=== PATIENT | male | born 1980 | race Caucasian/White ===

== ENCOUNTER 2021-03-20 09:46 | Outpatient (CLI) | payer OTHER, SELFPAY ==
--- NOTE | 2021-03-20 10:06 | XR_ITS ---
WS: [id number] Lumbar spine, 3 views, 03/20/2021 Clinical Data: LUMBAR DDD OSTEOARTHRITIS Comparison: None. Findings: No compression fractures or subluxation is seen. No disc space narrowing is seen of the lumbar levels . There is degenerative disc narrowing at T12-L1. The transverse processes and SI joints are normal. There is minimal osteoarthritic spurring of the lower thoracic and all the lumbar vertebral bodies. XR/XR lumbar spine 2-3V* [id number] Impression: Minimal osteoarthritis of the lumbar vertebral bodies.
== END 2021-03-20 09:47 | disposition home or self-care (01) ==
LOC: RAD 09:58
PROVIDERS: PCP Family Medicine; Visit Provider Dermatology
DX: Z02.71 Encounter for disability determination (principal); M51.36 Other intervertebral disc degeneration, lumbar region; M47.816 Spondylosis without myelopathy or radiculopathy, lumbar region
CPT/HCPCS: 72100

== ENCOUNTER → 2021-06-13 14:13 | Outpatient (BNVA) | payer MEDICAID, SELFPAY | PROVIDERS: PCP Family Medicine; Visit Provider Nurse Practitioner Family | DX: I10 Essential (primary) hypertension (principal) | CPT/HCPCS: 73030; 73110; 73130; 80053; 80061; 82607; 83036; 83735; 84439; 84443; 85025 ==

== ENCOUNTER → 2021-07-14 11:07 | Outpatient (BNVA) | payer MEDICAID, SELFPAY | PROVIDERS: PCP Nurse Practitioner Family; Visit Provider Nurse Practitioner Family | DX: I10 Essential (primary) hypertension (principal); K21.9 Gastro-esophageal reflux disease without esophagitis; R00.2 Palpitations; M25.512 Pain in left shoulder | CPT/HCPCS: 80053 ==

== ENCOUNTER → 2021-07-18 14:05 | Outpatient (BNVA) | payer MEDICAID, SELFPAY | PROVIDERS: PCP Nurse Practitioner Family; Visit Provider Internal Medicine Cardiovascular Disease | DX: I10 Essential (primary) hypertension (principal); R00.2 Palpitations; R94.31 Abnormal electrocardiogram [ECG] [EKG]; F17.210 Nicotine dependence, cigarettes, uncomplicated; R55 Syncope and collapse; I49.3 Ventricular premature depolarization; I49.1 Atrial premature depolarization; R00.0 Tachycardia, unspecified | CPT/HCPCS: 93270; 99204 ==

== ENCOUNTER → 2022-01-04 11:00 | Outpatient (BNVA) | payer MEDICAID, SELFPAY | PROVIDERS: PCP Nurse Practitioner Family; Visit Provider Nurse Practitioner Family | DX: I10 Essential (primary) hypertension (principal); R73.9 Hyperglycemia, unspecified; Z23 Encounter for immunization; K21.9 Gastro-esophageal reflux disease without esophagitis; R19.7 Diarrhea, unspecified | CPT/HCPCS: 80053; 80061; 83036; 84443; 85025 ==

== ENCOUNTER 2022-05-08 07:10 | Outpatient (CLI) | payer MEDICAID, SELFPAY ==
--- NOTE | 2022-05-08 07:28 | USCV_ITS ---
Brad Carlton Age: 42 Gender: M : 1980 Exam Date: 05/08/2022 07:51 Ordering Phys: Parish Marie MD ([email or web address]) Technologist: RAYMUNDO Exam Location: [facility] Indication: htn BP: 122 / 86 HR: 78 Rhythm: Sinus Technical Quality: Adequate MEASUREMENTS (Male / Female) Normal Values 2D ECHO LV Diastolic Diameter PLAX 3.2 cm 4.2 - 5.9 / 3.9 - 5.3 cm LV Systolic Diameter PLAX 1.5 cm IVS Diastolic Thickness 0.6 cm 0.6 - 1.0 / 0.6 - 0.9 cm IVS Systolic Thickness 1.0 cm LVPW Diastolic Thickness 1.2 cm 0.6 - 1.0 / 0.6 - 0.9 cm LVPW Systolic Thickness 1.3 cm LVOT Diameter 2.2 cm LV Ejection Fraction 2D Teich 85.2 % LV Ejection Fraction MOD 2C 57.9 % LV Ejection Fraction 2C AL 58.9 % LA Diameter 3.1 cm LA Width 3.4 cm LA Height 3.7 cm RA Width 3.2 cm RA Height 4.2 cm Aorta at Sinotubular Diameter 3.3 cm IVC Diameter 1.6 cm M-MODE Aortic Annulus Diameter 3.1 cm LA Ao Ratio MM 1.0 MV E Point Septal Separation 0.6 cm DOPPLER AV Peak Velocity 105.3 cm/s LVOT Peak Velocity 102.0 cm/s AV Area Cont Eq vti 3.8 cm squared AV Area Cont Eq pk 3.8 cm squared MV Peak Velocity 91.0 cm/s MV Area PHT 3.5 cm squared Mitral E to A Ratio 0.8 MV E' Velocity 36.5 cm/s Mitral E to MV E' Ratio 7.7 Mitral E to LV E' Lateral Ratio 7.0 Mitral E to LV E' Septal Ratio 8.7 TR Peak Velocity 212.1 cm/s TR Peak Gradient 18.0 mmHg TR Mean Velocity 167.6 cm/s TR Mean Gradient 12.0 mmHg TR Velocity Time Integral 47.7 cm Right Atrial Pressure 3.0 mmHg Pulmonary Artery Systolic Pressu 21.0 mmHg PV Peak Velocity 75.3 cm/s RV Acceleration Time 0.1 s RV Ejection Time 0.3 s RV AcT/ET 0.6 FINDINGS Left Ventricle Normal left ventricular size and systolic function, EF 59 %. Regional wall motion abnormalities (see diagram). Grade I/IV diastolic dysfunction (abnormal relaxation filling pattern), normal to mildly elevated filling pressures. Right Ventricle The right ventricle is normal in size and function. Right Atrium The right atrium is normal in size. Left Atrium The left atrium is normal in size. Mitral Valve No gross abnormalities noted Aortic Valve Thickened aortic valve. Tricuspid Valve Trace to mild tricuspid valve regurgitation. Pulmonic Valve No gross abnormalities noted Pericardium Normal pericardium without effusion. Aorta Normal ascending aorta dimension. IVC Normal inferior vena cava. CONCLUSIONS Normal left ventricular size and systolic function, EF 59 %. Regional wall motion abnormalities (see diagram). Grade I/IV diastolic dysfunction (abnormal relaxation filling pattern), normal to mildly elevated filling pressures. Thickened aortic valve. Trace to mild tricuspid valve regurgitation. Estimated pulmonary artery peak systolic pressure 21 mmHg There is no pericardial effusion. There are no intracardiac masses. No similar previous studies are available for comparison Dr Sharon Wilcox MD FACC (Electronically Signed) Final Date: 08 May 2022 11:28 S
== END 2022-05-08 07:11 | disposition home or self-care (01) ==
LOC: RAD 07:11
PROVIDERS: PCP Nurse Practitioner Family; Visit Provider Internal Medicine Cardiovascular Disease
DX: I10 Essential (primary) hypertension (principal); I08.2 Rheumatic disorders of both aortic and tricuspid valves
CPT/HCPCS: 93306

== ENCOUNTER 2022-06-07 06:49 | Outpatient (CLI) | payer MEDICAID, SELFPAY ==
--- NOTE | 2022-06-07 | ECG_ITS ---
[facility] Test Date: 2022-06-07 Pat Name: Brad Carlton Department: Room: Gender: Male Risk Intern: Marga Clinton : 1980 Requested By: Sharon Wilcox Order Number: [id number] Samara MD: Sharon Wilcox M.D. Interpretive Statements NAME OF STUDY: EXERCISE SESTAMIBI STRESS TEST INDICATION: Chest Pain, PROCEDURE: The baseline electrocardiogram showed normal sinus rhythm with normal ST-Ts. At the baseline, the patient's blood pressure was 106/89 mm Hg with a heart rate of 86. The patient exercised for 7 minutes and 12 seconds on a standard Hong protocol. Patient attained a maximum heart rate of 162 beats per minute(91% of the maximum predicted heart rate) with a blood pressure at the peak exercise of 163/97 mm Hg. The EKG at the peak exercise revealed no significant changes. Patient did not have any chest pain or any significant arrhythmis with the exercise Sestamibi was injected 1 minute prior to the peak exercise During the recovery phase, there were no new changes. Blood pressure at the end of the recovery phase was 112/82 mm Hg with a heart rate of 105 per minute. CONCLUSION: 1. No significant EKG changes with the [treadmill exercise 2. No exercise-induced chest pain or cardiac arrhythmia 3. Fair exercise tolerance, attained a maximum of 10.2 METs 4. Sestamibi/Sestamibi perfusion results pending; see separate report. Electronically Signed On 06-10-2022 17:07:12 CDT by Sharon Wilcox M.D. [id number]
[2022-06-07 08:16] VITALS: BMI 34.1
--- NOTE | 2022-06-07 08:17 | NMCV_ITS ---
NM bernabe perf SPECT r/s* [id number] Brad Carlton Age: 42 Gender: M : 1980 Exam Date: 06/07/2022 09:17 Ordering Phys: Sharon Wilcox MD ([email or web address]) Technologist: JUVE Blandon Exam Location: [facility] Indications: CORONARY ANGIOPLASTY STATUS STRESS TEST Please see separate stress test report in [facility] for full findings IMAGE PROTOCOL Rest/Stress 1 Exercise Day Radiopharmaceutical Dose (mCi) Administration Site Administered by Rest: Tc-99m 10.7 IV JUVE Meraz Sestamibi Stress:Tc-99m 32.3 IV JUVE Meraz Sestamibi Rest: 07-Jun-2022 60 Discovery 630 Stress: 07-Jun-2022 15 Discovery 630 Radiopharmaceutical was injected at 87 % maximum heart rate. Images obtained in supine and prone position. SPECT RESULTS Technical Quality: Excellent Raw Data Analysis: Normal Image Corrections: No attenuation or motion correction applied Summed Stress Score: 0 Summed Rest Score: 0 Summed Difference Score: 0 PERFUSION FINDINGS Uniform myocardial tracer uptake with no significant perfusion abnormalities FUNCTIONAL RESULTS (calculated via Gated SPECT) Stress Image LV EF (%): 76 Stress EDV (mL):106 TID: 0.89 Stress ESV (mL):25 FUNCTIONAL FINDINGS: Segmental wall motion analysis revealing no gross wall motion abnormalities IMPRESSIONS 1. Uniform myocardial trace uptake with no significant perfusion abnormalities 2. Normal LV ejection fraction of 76%. 3. LV wall motion analysis revealing no gross wall motion abnormalities. 4. Normal LV volume Low probability for coronary ischemia, based on the above findings Dr Sharon Wilcox MD FACC (Electronically Signed) Final Date: 07 June 2022 18:48 S
[2022-06-07 11:00] VITALS: BP 112/82; PULSE 65
== END 2022-06-07 06:50 | disposition home or self-care (01) ==
PROVIDERS: PCP Nurse Practitioner Family; Visit Provider Internal Medicine Cardiovascular Disease
DX: Z98.61 Coronary angioplasty status (principal); R94.31 Abnormal electrocardiogram [ECG] [EKG]
CPT/HCPCS: 36415; 78452; 93017; A9500

== ENCOUNTER → 2022-06-14 14:36 | Outpatient (BNVA) | payer MEDICAID, SELFPAY | PROVIDERS: PCP Nurse Practitioner Family; Visit Provider Nurse Practitioner Family | DX: R50.9 Fever, unspecified (principal); J02.9 Acute pharyngitis, unspecified | CPT/HCPCS: 87071; 87400; 87426; 87880 ==

== ENCOUNTER → 2022-06-28 15:56 | Outpatient (BNVA) | payer MEDICAID, SELFPAY | PROVIDERS: PCP Nurse Practitioner Family; Visit Provider Nurse Practitioner Family | DX: R73.9 Hyperglycemia, unspecified (principal); I10 Essential (primary) hypertension; K21.9 Gastro-esophageal reflux disease without esophagitis; M54.50 Low back pain, unspecified | CPT/HCPCS: 80053; 80061; 83036; 84443; 85025 ==

== ENCOUNTER → 2022-07-13 10:19 | Outpatient (BNVA) | payer MEDICAID, SELFPAY | PROVIDERS: PCP Nurse Practitioner Family; Visit Provider Nurse Practitioner Family | DX: D72.829 Elevated white blood cell count, unspecified (principal) | CPT/HCPCS: 85025 ==

== ENCOUNTER → 2022-10-26 14:57 | Outpatient (BNVA) | payer MEDICAID, SELFPAY | PROVIDERS: PCP Nurse Practitioner Family; Visit Provider Nurse Practitioner Family | DX: R52 Pain, unspecified (principal); R68.83 Chills (without fever); Z20.822 Contact with and (suspected) exposure to COVID-19 | CPT/HCPCS: 87426 ==

== ENCOUNTER → 2022-12-31 12:08 | Outpatient (BNVA) | payer OTHER, MEDICAID, SELFPAY | PROVIDERS: PCP Nurse Practitioner Family; Visit Provider Nurse Practitioner Family | DX: I10 Essential (primary) hypertension (principal) | CPT/HCPCS: 80053; 80061; 82607; 83036; 83735; 84443; 85025 ==

== ENCOUNTER → 2023-06-28 09:18 | Outpatient (BNVA) | payer MEDICAID, SELFPAY | PROVIDERS: PCP Nurse Practitioner Family; Visit Provider Nurse Practitioner Family | DX: M47.896 Other spondylosis, lumbar region (principal); M54.50 Low back pain, unspecified | CPT/HCPCS: 72100 ==

== ENCOUNTER 2023-08-01 08:59 | Outpatient (CLI) | payer MEDICAID, SELFPAY ==
--- NOTE | 2023-08-01 09:30 | MR_ITS ---
WS: [id number] MRI LUMBAR SPINE NONCONTRAST TECHNIQUE: Sagittal T1, T2 and STIR imaging. Axial T1 and T2 imaging. CLINICAL INFORMATION: M54.42 - Lumbago with sciatica, left side COMPARISON: None. FINDINGS: Mild lumbar curve. No acute compression. Disc bulging worse at T12-L1 and L1-2. T12-L1: Mild disc bulging with mild central canal stenosis. Moderate facet arthropathy. Foramen are p atent. L1-L2: Mild disc bulging with slight effacement of the ventral thecal sac. Mild central canal stenosi s. Moderate facet arthropathy. Foramen are patent. L2-L3: Mild annular bulging. Moderate facet arthropathy. Spinal canal and foramen are patent. L3-L4: Mild annular bulging. Moderate facet arthropathy. Mild LEFT and no significant RIGHT foraminal narrowing. L4-L5: Mild annular bulging. Moderate facet arthropathy. Mild LEFT and no significant RIGHT foraminal narrowing. Slight contact of the exiting LEFT L4 nerve root with LEFT eccentric disc bulging. L5-S1: No significant disc bulging. Moderate facet arthropathy. Spinal canal and foramen are patent. Visualized pelvic bony structures: Normal. Paravertebral soft tissues: Normal. Mild central canal stenosis in the cervical spine corporate real estate specialist imaging with suggestion of myelomalacia in th e cervical cord at C3-C4. This can further evaluated with cervical spine MRI. MR/MR lumbar spine wo con* [id number] IMPRESSION: 1. Mild lumbar curve. No acute compression. 2. Mild central canal stenosis T12-L1 and L1-L2. 3. LEFT eccentric disc bulging L4-5 with slight contact of the exiting LEFT L4 nerve root. Recommend correlation LEFT L4 nerve root symptoms. Mild LEFT tiffani inal narrowing at this level. 4. Tiny LEFT foraminal protrusion L3-4 with mild LEFT foraminal narrowing. 5. Moderate facet arthropathy L4-L5 and L5-S1. 6. Mild central canal stenosis in the cervical spine corporate real estate specialist imaging with sugges tion of myelomalacia in the cervical cord at C3-C4. This can further evaluated with cervical spine MRI.
== END 2023-08-01 09:00 | disposition home or self-care (01) ==
LOC: RAD 09:00
PROVIDERS: PCP Nurse Practitioner Family; Visit Provider Nurse Practitioner Family
DX: M54.42 Lumbago with sciatica, left side (principal); M54.41 Lumbago with sciatica, right side; G89.29 Other chronic pain; M48.04 Spinal stenosis, thoracic region; M48.061 Spinal stenosis, lumbar region without neurogenic claudication; M47.817 Spondylosis without myelopathy or radiculopathy, lumbosacral region; M51.36 Other intervertebral disc degeneration, lumbar region; M48.02 Spinal stenosis, cervical region
CPT/HCPCS: 72148

== ENCOUNTER → 2023-08-20 13:19 | Outpatient (BNVA) | payer MEDICAID, SELFPAY | PROVIDERS: PCP Nurse Practitioner Family; Visit Provider Orthopaedic Surgery | DX: M54.42 Lumbago with sciatica, left side (principal); M54.41 Lumbago with sciatica, right side; G89.29 Other chronic pain; M48.062 Spinal stenosis, lumbar region with neurogenic claudication | CPT/HCPCS: 72110 ==

== ENCOUNTER 2023-09-16 06:00 | Outpatient (RCR) | payer MEDICAID, SELFPAY | END 2023-09-25 23:59 | disposition home or self-care (01) | LOC: TPT 06:00 | PROVIDERS: Visit Provider Orthopaedic Surgery | DX: M54.9 Dorsalgia, unspecified (principal); G89.29 Other chronic pain | CPT/HCPCS: 97110; 97161 ==

== ENCOUNTER 2023-09-26 06:00 | Outpatient (RCR) | payer MEDICAID, SELFPAY | END 2023-10-26 23:59 | disposition home or self-care (01) | LOC: TPT 06:00 | PROVIDERS: PCP Nurse Practitioner Family; Visit Provider Orthopaedic Surgery | DX: M54.9 Dorsalgia, unspecified (principal); G89.29 Other chronic pain | CPT/HCPCS: 97110; 97112; 97116; 97140; 97530 ==

== ENCOUNTER → 2023-12-16 12:34 | Outpatient (BNVA) | payer MEDICAID, SELFPAY | PROVIDERS: PCP Nurse Practitioner Family; Visit Provider Nurse Practitioner Family | DX: R05.9 Cough, unspecified (principal) | CPT/HCPCS: 87071; 87426; 87880 ==

== ENCOUNTER 2024-03-21 00:56 | Emergency (ER) | payer MEDICAID, SELFPAY ==
[2024-03-21] VITALS (7 sets, daily range): BP systolic 140–160; BP diastolic 92–100; PULSE 100–111; RESP 18–20; TEMP 38.2; O2SAT 94–98; BMI 30.7
--- NOTE | 2024-03-21 01:25 | W.ED.URI ---
HPI - URI/Sore Throat General: Chief Complaint: Upper Respiratory Infection Stated Complaint: Fever, Body Ack Time Seen by Provider: 03/21/24 00:59 History of Present Illness: Patient presents with acute onset of flu-like symptoms. Reports fever, generalized body aches, and productive cough with phlegm. Symptoms began today, with cough present for a couple of days prior. Patient was feeling well yesterday morning, but began feeling unwell around 3:30 PM with rapid symptom progression over 6 hours. Fever documented at home with progression from 100.2?F to 102.6?F, prompting ED visit. Patient took ibuprofen prior to arrival, with temperature recorded at 100.8?F in ED. Denies sick contacts. Medical history significant for hypertension. Current smoker. No flu vaccination this year. Patient works at [employer]. Associated symptoms: Reports chills and fever(s); Deny abdominal pain, diarrhea, nausea or vomiting Related Data Previous Rx's Medication Instructions Recorded budesonide-formoterol HFA 160 2 puff inhalation BID #10.2 grams 06/08/22 mcg-4.5 mcg/actuation aerosol inhaler (Symbicort) hydrochlorothiazide 25 mg tablet See Rx Instructions .Route 12/31/22 .COMPLEX #90 tabs metoprolol tartrate 50 mg tablet 50 mg PO BID #180 tabs 12/31/22 amlodipine 10 mg tablet See Rx Instructions .Route 02/04/23 .COMPLEX #90 tabs celecoxib 200 mg capsule See Rx Instructions .Route 05/21/23 .COMPLEX PRN pain #60 caps pantoprazole 40 mg tablet,delayed See Rx Instructions .Route 06/11/23 release .COMPLEX #30 tabs gabapentin 300 mg capsule 300 mg PO BID #60 caps 07/10/23 albuterol sulfate 90 mcg/actuation See Rx Instructions .Route 08/27/23 aerosol inhaler (Ventolin HFA) .COMPLEX #8.5 grams cefdinir 300 mg capsule 300 mg PO BID 10 days #20 caps 01/28/24 cetirizine 10 mg tablet (Zyrtec) 10 mg PO DAILY #30 tabs 01/28/24 fluticasone propionate 50 2 spray intranasal DAILY #16 grams 01/28/24 mcg/actuation nasal spray,suspension (Flonase Allergy Relief) Allergies Allergy/AdvReac Type Severity Reaction Status Date / Time No Known Allergies Allergy Verified 08/20/23 13:24 Review of Systems Const: Reports: fever(s), chills, body aches, fatigue and malaise; Denies: diaphoresis GI: Denies: abdominal pain, nausea, vomiting or diarrhea PFSH ED PFSH: Surgical History History of hernia surgery Family History Mother Diabetes Hypertension Hyperlipidemia Father Cancer Lung disease Denies family history of CAD (coronary artery disease) Clotting disorder Dementia Chronic kidney disease (CKD) Suicide Anesthesia complication Bleeding disorder Stroke Social History Smoking and tobacco/nicotine status: never used tobacco/nicotine Alcohol intake: current Alcohol intake frequency: few times a month Substance/Drug Use: current Physical Exam Const: COMMON NORMALS: no acute distress, patient oriented x3, alert and well nourished HENMT: COMMON NORMALS: normocephalic HEAD & SCALP: normocephalic Eye: COMMON NORMALS: EOMs intact bilaterally and conjunctivae normal CONJUNCTIVA: Yes conjunctivae normal Neck/C-Spine: COMMON NORMALS: full ROM, no lymphadenopathy, supple and no meningeal signs Chest: COMMONS NORMALS: normal inspection of the chest and normal palpation of entire chest wall Resp: COMMON NORMALS: normal respiratory effort, No retractions, No use of accessory muscles and clear to auscultation bilaterally AUSCULTATION: clear to auscultation bilaterally GI: COMMON NORMALS: Normal to inspection, nondistended, normoactive bowel sounds present, Soft to palpation, non-tender, No hepatosplenomegaly present, no masses and no bruits PALPATION: Yes Soft to palpation and Yes No hepatosplenomegaly present Extremity: COMMON NORMALS: normal to inspection, full ROM, capillary refill normal and no clubbing, cyanosis or edema Neuro: COMMON NORMALS: patient oriented x3 SENSORIUM/ORIENTATION: Yes alert MENINGEAL SIGNS: Yes no meningeal signs Skin: COMMON NORMALS: no rashes or lesions noted, turgor normal and no jaundice GENERAL SKIN EXAM: no rashes or lesions noted and turgor normal Course ED course: Patient's vital signs are reasonably stable in the department he did not appear toxic or ill. He was positive for influenza A. Recommend symptomatic care we talked about risk benefits alternatives and complications to Tamiflu and ultimately mutually decided we would not prescribe and lieu of treating symptoms and staying home off work. Return precautions follow-up instructions given. Vital Signs: Vital signs: Vital Signs Temperature 100.8 F H 03/21/24 01:04 Pulse Rate 111 H 03/21/24 01:04 Respiratory Rate 20 H 03/21/24 01:04 Blood Pressure 160/100 03/21/24 01:04 Pulse Oximetry 98 03/21/24 01:04 MDM - URI/Sore Throat Medical Decision Making Patient presents with flulike symptoms we have a large outbreak of influenza A in the community have recommended testing for flu and COVID. Lab Data Laboratory Results Coronavirus (PCR) Negative (Negative) 03/21/24 01:08 Influenza A (PCR) Positive (Negative) 03/21/24 01:08 Influenza Type B (PCR) Negative (Negative) 03/21/24 01:08 RSV (PCR) Negative (Negative) 03/21/24 01:08 No radiology studies performed this visit Discharge Plan Discharge Patient Disposition: Home Clinical Impression: Cigarette smoker, Influenza A Condition: Stable Prescriptions: No Action budesonide-formoterol [Symbicort] 160-4.5 mcg/actuation HFA aerosol inhaler 2 puff inhalation BID Qty: 10.2 2RF celecoxib 200 mg capsule See Rx Instructions .ROUTE .COMPLEX PRN (Reason: pain) Qty: 60 2RF Dose Instruction: TAKE ONE CAPSULE BY MOUTH TWICE DAILY NEEDED FOR PAIN Rx Instructions: TAKE ONE CAPSULE BY MOUTH TWICE DAILY NEEDED FOR PAIN PRN; gabapentin 300 mg capsule 300 mg PO BID Qty: 60 2RF fluticasone propionate [Flonase Allergy Relief] 50 mcg/actuation spray,suspension 2 spray intranasal DAILY Qty: 16 2RF Rx Instructions: administer into each nostril cetirizine [Zyrtec] 10 mg tablet 10 mg PO DAILY Qty: 30 2RF cefdinir 300 mg capsule 300 mg PO BID 10 Days Qty: 20 0RF metoprolol tartrate 50 mg tablet 50 mg PO BID Qty: 180 1RF hydrochlorothiazide 25 mg tablet See Rx Instructions .ROUTE .COMPLEX Qty: 90 1RF Dose Instruction: TAKE ONE TABLET BY MOUTH EVERY MORNING Rx Instructions: TAKE ONE TABLET BY MOUTH EVERY MORNING amlodipine 10 mg tablet See Rx Instructions .ROUTE .COMPLEX Qty: 90 1RF Dose Instruction: TAKE ONE TABLET BY MOUTH DAILY Rx Instructions: TAKE ONE TABLET BY MOUTH DAILY pantoprazole 40 mg tablet,delayed release (DR/EC) See Rx Instructions .ROUTE .COMPLEX Qty: 30 2RF Dose Instruction: TAKE ONE TABLET BY MOUTH DAILY Rx Instructions: TAKE ONE TABLET BY MOUTH DAILY albuterol sulfate [Ventolin HFA] 90 mcg/actuation HFA aerosol inhaler See Rx Instructions .ROUTE .COMPLEX Qty: 8.5 2RF Dose Instruction: INHALE TWO PUFFS BY MOUTH EVERY 6 HOURS NEEDED SHORTNESS OF BREATH OR FOR WHEEZING. Rx Instructions: INHALE TWO PUFFS BY MOUTH EVERY 6 HOURS NEEDED SHORTNESS OF BREATH OR FOR WHEEZING. Discharge Orders: Discharge ED (Routine); Ordered 03/21/24 Ordered By: Jaleel López Referrals: Britney Carter FNP [Primary Care Provider] - Discharge Diet: Advance as tolerated Patient Instructions: Opioid Safety, Pain Management Activity Restrictions/Additional Instructions: Cannot return to work until fever free x 24 hours. Take Tylenol Flu and Cold and push fluids. Return for new or worsening symptoms. 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
[2024-03-21 01:54] LABS: Covid PCR NEGATIVE (Negative); Influenza A POSITIVE (Negative); Influenza B NEGATIVE (Negative); Respiratory Syncytial Virus Ce NEGATIVE (Negative)
== END 2024-03-21 02:26 | disposition home or self-care (01) ==
PROVIDERS: Orthopaedic Surgery Sports Medicine; Emergency Provider Family Medicine; PCP Nurse Practitioner Family
DX: J10.1 Influenza due to other identified influenza virus with other respiratory manifestations (principal); Z11.52 Encounter for screening for COVID-19; F17.210 Nicotine dependence, cigarettes, uncomplicated
CPT/HCPCS: 87637; 99283

== ENCOUNTER 2024-07-26 00:47 | Emergency (ER) | payer MEDICAID, SELFPAY ==
[2024-07-26 00:53] VITALS: BP 189/117; PULSE 79; RESP 18; TEMP 37.1; O2SAT 99; BMI 32.3
--- NOTE | 2024-07-26 03:03 | ED_ITS ---
HPI - Dental/Oral General: Chief complaint: Dental/Oral Stated complaint: left side dental pain Time Seen by Provider: 07/26/24 02:56 History of Present Illness: 44-year-old male patient with a history of pain to his left lower jaw. Pain has been present on and off for a week or so. It was much worse last evening. Improved somewhat after taking Advil at home. Related Data Previous Rx's ?Medication ?Instructions ?Recorded budesonide-formoterol HFA 160 2 puff inhalation BID #1 0.2 grams 06/08/22 mcg-4.5 mcg/actuation aerosol inhaler (Symbicort) hydrochlorothiazide 25 mg tablet See Rx Instructions . Route 12/31/22 .COMPLEX #90 tabs metoprolol tartrate 50 mg tablet 50 mg PO BID #180 tab s 12/31/22 amlodipine 10 mg tablet See Rx Instructions .Route 1 04/07/22 .COMPLEX #90 tabs celecoxib 200 mg capsule See Rx Instructions .Route 0 05/21/23 .COMPLEX PRN pain #60 caps gabapentin 300 mg capsule 300 mg PO BID #60 caps 07/09 cetirizine 10 mg tablet (Zyrtec) 10 mg PO DAILY #30 ta bs 01/28/24 fluticasone propionate 50 2 spray intranasal DAILY #16 grams 01/28/24 mcg/actuation nasal spray,suspension (Flonase Allergy Relief) albuterol sulfate 90 mcg/actuation See Rx Instructions .Route 03/26/24 aerosol inhaler (Ventolin HFA) .COMPLEX #8.5 grams benzonatate 100 mg capsule 100 mg PO TID PRN cough #30 caps 03/26/24 pantoprazole 40 mg tablet,delayed See Rx Instructions .Route 07/02/24 release .COMPLEX #30 tabs amoxicillin 875 mg-potassium 1 tab PO BID #20 tabs 03/21 clavulanate 125 mg tablet tramadol 50 mg tablet 50 mg PO Q6H PRN pain #10 ta bs 07/26/24 Allergies Allergy/AdvReac Type Severity Reaction Status Date / Time No Known Allergies Allergy Verified 03/24/24 08:27 PFS ED PFSH: Surgical History History of hernia surgery Family History Mother Diabetes Hypertension Hyperlipidemia Father Cancer Lung disease Denies family history of CAD (coronary artery disease) Clotting disorder Dementia Chronic kidney disease (CKD) Suicide Anesthesia complication Bleeding disorder Stroke Social History Smoking and tobacco/nicotine status: never used tobacco/nicotine Alcohol intake: current Alcohol intake frequency: few times a month Substance/Drug Use: current Physical Exam Const: COMMON NORMALS: no acute distress GENERAL APPEARANCE: not ill appearing and not frail appearing HENMT: TEETH & GINGIVA: Yes abnormal tooth and associated gingiva OTHER: Exam reveals more cracking, with surrounding gingival swelling, and small appearance of abscess of the buccal mucosa at that junction to gingiva. Chest: CHEST: Yes Symmetrical chest wall rise Resp: COMMON NORMALS: normal respiratory effort, No retractions, No use of accessory muscles and clear to auscultation bilaterally AUSCULTATION: clear to auscultation bilaterally Cardio: COMMON NORMALS: regular rate and regular rhythm RATE: regular rate RHYTHM: regular rhythm Skin: COMMON NORMALS: no rashes or lesions noted GENERAL SKIN EXAM: no rashes or lesions noted Course Vital Signs: Vital signs: Vital Signs Temperature 98.7 F 07/26/24 00:53 Pulse Rate 79 07/26/24 00:53 Respiratory Rate 18 07/26/24 00:53 Blood Pressure 189/117 07/26/24 00:53 Pulse Oximetry 99 07/26/24 00:53 Oxygen Delivery Me thod Room Air 07/26/24 00:53 MDM - Dental/Oral Medical Decision Making Findings consistent with likely early dental abscess. Augmentin. Pain control. Dental follow-up. He has an appointment with his dentist this coming week. To return for any worsening symptoms. All radiology interpretation(s) finalized by discharge Discharge Plan Discharge Patient Disposition: Home Clinical Impression: Dental abscess Condition: Stable Prescriptions: New amoxicillin-pot clavulanate 875-125 mg tablet 1 tab PO BID Qty: 20 0RF tramadol 50 mg tablet 50 mg PO Q6H PRN (Reason: pain) Qty: 10 0RF No Action budesonide-formoterol [Symbicort] 160-4.5 mcg/actuation HFA aerosol inhaler 2 puff inhalation BID Qty: 10.2 2RF celecoxib 200 mg capsule See Rx Instructions .ROUTE .COMPLEX PRN (Reason: pain) Qty: 60 2RF Dose Instruction: TAKE ONE CAPSULE BY MOUTH TWICE DAILY NEEDED FOR PAIN Rx Instructions: TAKE ONE CAPSULE BY MOUTH TWICE DAILY NEEDED FOR PAIN PRN; gabapentin 300 mg capsule 300 mg PO BID Qty: 60 2RF fluticasone propionate [Flonase Allergy Relief] 50 mcg/actuation spray,suspension 2 spray intranasal DAILY Qty: 16 2RF Rx Instructions: administer into each nostril cetirizine [Zyrtec] 10 mg tablet 10 mg PO DAILY Qty: 30 2RF benzonatate 100 mg capsule 100 mg PO TID PRN (Reason: cough) Qty: 30 0RF albuterol sulfate [Ventolin HFA] 90 mcg/actuation HFA aerosol inhaler See Rx Instructions .ROUTE .COMPLEX Qty: 8.5 2RF Dose Instruction: INHALE TWO PUFFS BY MOUTH EVERY 6 HOURS NEEDED SHORTNESS OF BREATH OR FOR WHEEZING. Rx Instructions: INHALE TWO PUFFS BY MOUTH EVERY 6 HOURS NEEDED SHORTNESS OF BREATH OR FOR WHEEZING. metoprolol tartrate 50 mg tablet 50 mg PO BID Qty: 180 1RF hydrochlorothiazide 25 mg tablet See Rx Instructions .ROUTE .COMPLEX Qty: 90 1RF Dose Instruction: TAKE ONE TABLET BY MOUTH EVERY MORNING Rx Instructions: TAKE ONE TABLET BY MOUTH EVERY MORNING amlodipine 10 mg tablet See Rx Instructions .ROUTE .COMPLEX Qty: 90 1RF Dose Instruction: TAKE ONE TABLET BY MOUTH DAILY Rx Instructions: TAKE ONE TABLET BY MOUTH DAILY pantoprazole 40 mg tablet,delayed release (DR/EC) See Rx Instructions .ROUTE .COMPLEX Qty: 30 0RF Dose Instruction: TAKE ONE TABLET BY MOUTH DAILY Rx Instructions: TAKE ONE TABLET BY MOUTH DAILY Discharge Orders: Discharge ED (Routine); Ordered 07/26/24 Ordered By: Rigoberto Morales Referrals: Britney Carter [employer] SUPERVISOR [Primary Care Provider, Family Practice] - 4-7 days Patient Instructions: Dental Abscess (ED), Opioid Safety, Pain Management Activity Restrictions/Additional Instructions: Antibiotics as directed. Pain medication for significant pain. Return for fever greater than 100 despite 2-3 doses of antibiotics. Keep your dental appointment for follow-up. 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
[2024-07-26] MEDS: amoxicillin-clav 875-125 mg Tablet 1 TAB PO (03:09)
[2024-07-26] MEDS: ketorolac 10 mg Tablet PO (03:10)
[2024-07-26] MEDS: oxyCODONE-APAP 5-325 mg Tablet 1 TAB PO (03:10)
== END 2024-07-26 03:16 | disposition home or self-care (01) ==
PROVIDERS: Emergency Provider Emergency Medicine; PCP Nurse Practitioner Family
DX: K04.7 Periapical abscess without sinus (principal)
CPT/HCPCS: 99283; J9999

== ENCOUNTER → 2024-08-25 13:03 | Outpatient (BNVA) | payer MEDICAID, SELFPAY | PROVIDERS: PCP Nurse Practitioner Family; Visit Provider Nurse Practitioner Family | DX: I10 Essential (primary) hypertension (principal) | CPT/HCPCS: 80053; 80061; 84443; 85025 ==